=== PATIENT | male | born 1995 | race Caucasian/White ===

== ENCOUNTER 2024-04-16 08:37 | Emergency (ER) | payer SELFPAY ==
[2024-04-16 08:38] VITALS: BP 179/103
[2024-04-16 08:50] VITALS: BMI 26.3
--- NOTE | 2024-04-16 09:16 | ED.GENMED ---
History of Present Illness
General
Chief Complaint: Skin Surface Trauma
Source: patient
Exam Limitations: none
Time Seen by Provider: 04/16/24 08:42
Nursing documentation reviewed up to this point in time: agreed with
History of Present Illness
History of Present Illness:
Patient is a 29-year-old male who presents to the ER for evaluation of right thigh laceration. 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
He denies any other injuries. He is unsure of his last tetanus.
Review of Systems
Review of Systems
Allergies reviewed?: Yes
All Other Systems: ROS reviewed and negative except as documented in HPI and ROS
Constitutional: Reports no symptoms
Musculoskeletal: Reports other (laceration to right thigh )
Skin: Reports other (see above)
Neurological: Reports no symptoms
Psychiatric: Reports no symptoms
Phy Exam
General Physical Exam
General Presentation: no apparent distress
General age: appears stated age
General Skin: warm and dry
General Habitus: normal
General Mental: alert
Neurological Exam
Neurological Exam: alert and oriented x3
Musculoskeletal Exam
Musculoskeletal Exam: other (Right medial thigh with approximately 6 cm full-thickness linear laceration through to subcutaneous tissue only)
Course
Orders/Labs/Results
Orders:
Orders
04/16/24 09:16
Tetanus/Diphth/Acelpertussis [Adacel] 0.5 ml IM .ONCE ONE
Vital Signs
Initial and Last Documented VS:
Initial Vital Signs
Temp Pulse BP Pulse Ox
97.5 F 116 179/103 99
04/16/24 08:38 04/16/24 08:38 04/16/24 08:38 04/16/24 08:38
Last Documented Vital Signs
Temp Pulse Resp BP Pulse Ox
97.5 F 65 18 148/74 97
04/16/24 08:38 04/16/24 09:20 04/16/24 09:20 04/16/24 09:20 04/16/24 09:20
Procedures
Laceration Closure
Right Medial Thigh:
Status of Wound: clean
Size of Wound in cm: 6
Description of Wound Edges: sharp
Preparation: cleaned with saline
Anesthesia: 1% Lidocaine with epi
Revision/Debridement: routine- no revision
Type of Closure: layered closure and interrupted sutures
Skin Closure Material: 4-0 nylon and other (2-4.0 Vicryl and 8-4.0 nylon simple interuppted )
Number of sutures: 8
MDM/Problems Addressed
Differential Diagnosis Includes:
Not limited to laceration
MDM/Problems Addressed:
Patient with a full-thickness right thigh laceration repaired as documented. Wound care reviewed. Tetanus updated.
*Critical Care Note
Total Time (30-74mins, 75-104mins- exclusive of procedures): Not Applicable
ED Attending Note
-
Portions of this chart may have been created with voice recognition software.� Occasional wrong word or��sound alike� substitutions may have occurred due to the inherent limitations of voice recognition software.
Discharge Plan
Departure
Patient Disposition: Home (Routine Discharge)
Date of Disposition: 04/16/24
Time of Disposition: 09:19
Patient with high blood pressure during this ER visit?: Yes
Condition: Fair
Covid-19: Not Applicable
Discharge Problem:
Laceration of leg
Instructions: Laceration Repair With Stitches (DC)
Activity Restrictions/Additional Instructions:
Keep wound clean and dry for 24 hours after 24 hours wash twice a day with soap and water pat dry and apply small layer of antibiotic ointment to the area. See family doctor as needed for wound check in 2 days, sutures are to be removed in 10 days.
Return if any signs of infection of increased pain swelling redness drainage fever chills.
Interventions
Interventions:
*Risk Screen - Suicide Last Done: 04/16/24 08:38
*General Assessment Last Done: 04/16/24 08:38
*Neglect/Abuse Screening Last Done: 04/16/24 08:38
ED- Fall Risk Assessment Last Done: 04/16/24 08:51
*ED COVID-19 Vaccine History Last Done: 04/16/24 08:50
ED-Skin Assessment Last Done: 04/16/24 08:50
Discharge Date and Time
Print Language: ARMENIAN
[2024-04-16 09:20] VITALS: BP 148/74
[2024-04-16] MEDS: ADACEL 0.5 ML IM (09:32)
== END 2024-04-16 09:37 | disposition home or self-care (01) ==
LOC: EMR 08:37
PROVIDERS: EMERGENCY PHYSICIAN Emergency Medicine
DX: S71.111A Laceration without foreign body, right thigh, initial encounter (principal); W26.8XXA Contact with other sharp object(s), not elsewhere classified, initial encounter; Y93.E9 Activity, other interior property and clothing maintenance; Y92.89 Other specified places as the place of occurrence of the external cause; Y99.0 Civilian activity done for income or pay; Z23 Encounter for immunization; R03.0 Elevated blood-pressure reading, without diagnosis of hypertension
CPT/HCPCS: 13121; 99282; 90471; 90715

== ENCOUNTER 2024-04-26 11:00 | Emergency (ER) | payer SELFPAY ==
[2024-04-26 11:01] VITALS: BP 131/84
--- NOTE | 2024-04-26 11:36 | ED.GENMED ---
History of Present Illness
General
Chief Complaint: Wound Check/Suture Removal
Source: patient
Exam Limitations: none
Time Seen by Provider: 04/26/24 11:12
Nursing documentation reviewed up to this point in time: agreed with
History of Present Illness
History of Present Illness:
29 male had stitches placed 10 days ago on his right thigh here he cut it on a metal fence, 2 under the skin 7 on the skin has had some redness and drainage but no fever minimal pain has had itching
Past History
Past History
ED Past Medical History: None
Social History
Tobacco: Non-smoker
Alcohol: None
Drug: None
Living: with family
Employment: Employed
Review of Systems
Review of Systems
All Other Systems: Not applicable
Constitutional: Denies fever
Skin: Reports itching and other (Redness and some drainage)
Phy Exam
Physical Exam
Physical Exam:
Physical Exam
General: no apparent distress, not acutely ill
Lungs: no acute respiratory distress.
Neuro: alert and oriented. no focal neurological deficits
Skin: Right thigh sutured wound with small amount of erythema mild tenderness no fluctuance
Psychiatric: well kept. interactive and cooperative
Extremities: no edema.
Course
Orders/Labs/Results
Orders:
Orders
04/26/24 11:31
Wound Dressing- Treatment ONCE
Location of Wound: leg
Cephalexin Monohydrate [Keflex] 500 mg PO NOW STA
Vital Signs
Initial and Last Documented VS:
Initial Vital Signs
Temp Pulse Resp BP Pulse Ox
97.6 F 75 18 131/84 99
04/26/24 11:01 04/26/24 11:01 04/26/24 11:01 04/26/24 11:01 04/26/24 11:01
Last Documented Vital Signs
Temp Pulse Resp BP Pulse Ox
97.6 F 75 18 131/84 99
04/26/24 11:01 04/26/24 11:01 04/26/24 11:01 04/26/24 11:01 04/26/24 11:01
Procedures
Other
Indication for procedure:: Sutures
Procedure completed by: Chanel
Consent form signed: No
Additional Procedure:
7 superficial sutures removed small amount of purulence
MDM/Problems Addressed
Differential Diagnosis Includes:
Wound infection foreign body cellulitis
MDM/Problems Addressed:
Wound check
*Critical Care Note
Total Time (30-74mins, 75-104mins- exclusive of procedures): Not Applicable
Update Note
Update Note:
Update sutures removed wound did dehisce a small amount in the middle small amount of puslike drainage will ask RN to clean the wound place Steri-Strips, started on antibiotics he can follow-up with his Workmen's Comp. provider as this is a work
related injury
ED Attending Note
-
Portions of this chart may have been created with voice recognition software.� Occasional wrong word or��sound alike� substitutions may have occurred due to the inherent limitations of voice recognition software.
Discharge Plan
Departure
Patient Disposition: Home (Routine Discharge)
Date of Disposition: 04/26/24
Time of Disposition: 11:39
Patient with high blood pressure during this ER visit?: No
Condition: Good
Discharge Problem:
Encounter for removal of sutures
Instructions: Stitches Removal, Wound Care (DC), Cellulitis (Skin Infection), Adult (DC)
Prescriptions:
New
cephalexin 750 mg capsule
750 mg PO Q6H 7 Days Qty: 28 0RF
Referrals:
UNKNOWN - PT DOES,NOT KNOW [Family Provider] -
Stand Alone Forms: Return to Work
Activity Restrictions/Additional Instructions:
Follow-up with your Workmen's Comp. provider
Interventions
Interventions:
*Risk Screen - Suicide Last Done: 04/26/24 11:01
*General Assessment Last Done: 04/26/24 11:01
*Neglect/Abuse Screening Last Done: 04/26/24 11:01
Discharge Date and Time
Print Language: PARAGUAYAN
[2024-04-26] MEDS: KEFLEX 500 MG PO (11:52)
== END 2024-04-26 12:15 | disposition home or self-care (01) ==
LOC: EMR 11:00
PROVIDERS: EMERGENCY PHYSICIAN Emergency Medicine
DX: S71.101D Unspecified open wound, right thigh, subsequent encounter (principal); W26.8XXD Contact with other sharp object(s), not elsewhere classified, subsequent encounter; Y99.0 Civilian activity done for income or pay
CPT/HCPCS: 99283